=== PATIENT | male | born 1980 | race Caucasian/White ===

== ENCOUNTER → 2021-08-16 | Outpatient (CLI) | payer OTHER | LOC: M WHC 07:50 | PROVIDERS: ATTEND Physician Assistant | DX: N63.0 Unspecified lump in unspecified breast (principal) | CPT/HCPCS: 76642; 77066; G0279 ==

== ENCOUNTER 2022-07-31 09:38 | Emergency (ER) | payer OTHER ==
[~2022-07-31] VITALS: Ht 182.9 cm; Wt 140.0 kg
[2022-07-31] MEDS ORDERED: LOSA50TA28 (09:55)
[2022-07-31] MEDS ORDERED: GABA-282 (09:55)
[2022-07-31] MEDS ORDERED: ROSU10TA6 (09:55)
[2022-07-31] MEDS ORDERED: KETOROLAC 30 MG/ML 1ML VIAL IM ONE (11:55)
[2022-07-31] MEDS ORDERED: METH-1164 PO (12:28)
[2022-07-31 12:41] VITALS: BP 142/78
== END 2022-07-31 12:43 | disposition home or self-care (01) ==
LOC: M ED 09:38
DX: R07.89 Other chest pain (principal); M94.0 Chondrocostal junction syndrome [Tietze]; S20.219A Contusion of unspecified front wall of thorax, initial encounter; S29.012A Strain of muscle and tendon of back wall of thorax, initial encounter; W51.XXXA Accidental striking against or bumped into by another person, initial encounter; Y99.0 Civilian activity done for income or pay; I10 Essential (primary) hypertension; E78.5 Hyperlipidemia, unspecified; F17.200 Nicotine dependence, unspecified, uncomplicated; Z79.899 Other long term (current) drug therapy
CPT/HCPCS: 36415; 71111; 84484; 93005; 96372; 99284; J1885